=== PATIENT | female | born 1990 | race Caucasian/White ===

== ENCOUNTER 2024-10-16 14:01 | Observation (INO) ==
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
--- NOTE | 2024-10-16 15:07 | XRAY Report ---
PROCEDURE: XR Chest 1V INDICATIONS: chest pain TECHNIQUE: One view of the chest was acquired. COMPARISON: None. FINDINGS: Surgical changes and devices: None. Lungs and pleura: On the supine study, no large pneumothorax or large pleural effusions can be seen. No focal infiltrates are detected. Mediastinum: Mediastinal contours appear normal. Heart size is normal. Bones and chest wall: No suspicious bony lesions. Overlying soft tissues appear unremarkable. IMPRESSION: No acute cardiopulmonary process. Reviewed by: Ricki Talavera MD on 10/16/2024 2:05 PM AKDT Approved by: Ricki Talavera MD on 10/16/2024 2:05 PM KEVIN Station ID: [id number]
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
[2024-10-16 15:12] VITALS: O2SAT 98
[2024-10-16] MEDS ORDERED: ACETAMINOPHEN 325 MG TABLET PO PRN (15:30)
[2024-10-16] MEDS ORDERED: LACTATED RINGERS 1,000 ML IV SCH (15:30)
[2024-10-16] MEDS: LACTATED RINGERS 1,000 ML IV ONE (15:37)
[2024-10-16 16:13] LABS: HCT - HEMATOCRIT 36.4 % (37.0-47.0); HGB - HEMOGLOBIN 12.2 g/dL (12.0-16.0); MEAN PLATELET VOLUME 10.5 fL (7.9-10.8); NRBC ABSOLUTE COUNT (AUTO) 0.00 x10^3/uL; NUCLEATED RED BLOOD CELLS AUTO 0.0 /100WBC; PLT - PLATELET COUNT 305 10^3/uL (130-450); RED CELL DISTRIBUTION WIDTH 12.9 % (12.0-15.0)
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
[2024-10-16 16:29] LABS: INR 1.0 (0.8-1.2); PT - PROTHROMBIN TIME 10.9 secs (9.9-12.6)
[2024-10-16 16:30] LABS: ALT ALANINE AMINOTRANSFERASE 13.0 IU/L (10-60); AST ASPARTATE AMINOTRANSFERASE 18.0 IU/L (10-42); BUN - BLOOD UREA NITROGEN 8.0 mg/dL (6-20); CARBON DIOXIDE - CO2 23.0 mmol/L (21-32); CREATININE 0.5 mg/dL (0.6-1.3); GFR - MDRD 140.0 (>89)
[2024-10-16 18:13] LABS: GLUCOSE, URINE (UA) NEGATIVE (NEGATIVE); KETONES,URINE (UA) 15 mg/dL (NEGATIVE); OCCULT BLOOD,URINE NEGATIVE (NEGATIVE)
[2024-10-16 18:26] LABS: SQUAMOUS EPITHELIAL CELL,UR MANY Squamous (<= Few)
[2024-10-17 05:20] LABS: HCT - HEMATOCRIT 31.8 % (37.0-47.0); HGB - HEMOGLOBIN 10.8 g/dL (12.0-16.0); MEAN PLATELET VOLUME 9.7 fL (7.9-10.8); NRBC ABSOLUTE COUNT (AUTO) 0.00 x10^3/uL; NUCLEATED RED BLOOD CELLS AUTO 0.0 /100WBC; PLT - PLATELET COUNT 271 10^3/uL (130-450); RED CELL DISTRIBUTION WIDTH 12.8 % (12.0-15.0)
[2024-10-17 05:35] LABS: INR 1.0 (0.8-1.2); PT - PROTHROMBIN TIME 11.0 secs (9.9-12.6)
[2024-10-17 07:59] VITALS: TEMP 98.1
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
--- NOTE | 2024-10-17 12:36 | PHARMACY PROGRESS NOTE ---
Best Possible Medication History Admit Date and Time: 10/16/24 [id number] Home Medications Medication Instructions Recorded Confirmed Type aspirin 81 mg tablet,delayed 81 mg PO DAILY 10/17/24 0 10/17/24 History release (Adult Low Dose Aspirin) vit no.95-ferrous 1 tab PO DAILY 10/17/2409/03 History fumarate 28 mg-folic acid 800 mcg tablet ( Multivitamins) Processed by: Pharmacy (Medication reconciliation completed by [employer]) Medications reviewed in ED?: No Medication History completed: Yes Patient Interview: Completed Secondary Source(s): Insurance records [facility] Statement: As the person ultimately responsible for medication therapy, providers are able to order a medication from an existing home medication list in [facility] via the "Reconcile Routine" prior to Confirmation of that medication by service support representative. Such practice is discouraged except when the physician, in their clinical grace gment, deems that a medical need exists for a medication without regard to previous use.
[2024-10-17 14:22] VITALS: BP 129/76
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
== END 2024-10-17 14:00 | disposition home or self-care (01) ==
LOC: FBP 14:01 → ED 14:01 → FBP 15:03
PROVIDERS: ADMIT Obstetrics & Gynecology; ATTEND Obstetrics & Gynecology
DX: Z3A.29 29 weeks gestation of pregnancy; S30.1XXA Contusion of abdominal wall, initial encounter; O36.8130 Decreased fetal movements, third trimester, not applicable or unspecified; O99.343 Other mental disorders complicating pregnancy, third trimester; S20.212A Contusion of left front wall of thorax, initial encounter; V43.52XA Car driver injured in collision with other type car in traffic accident, initial encounter; Y92.410 Unspecified street and highway as the place of occurrence of the external cause; F41.9 Anxiety disorder, unspecified; O9A.213 Injury, poisoning and certain other consequences of external causes complicating pregnancy, third trimester

== ENCOUNTER 2024-12-23 11:46 | Inpatient (IN) ==
[2024-12-23] MEDS ORDERED: SODIUM CHLORIDE FLUSH 0.9% 10 ML SYRINGE IVP PRN ×2 (11:57→13:09)
[2024-12-23] MEDS ORDERED: RHO(D) IMMUNE GLOBULIN 300 MCG SYRINGE IM PRN (11:57)
[2024-12-23] MEDS ORDERED: MINERAL OIL LIGHT 10 ML TOP SCH (12:00)
[2024-12-23 13:01] LABS: HCT - HEMATOCRIT 41.4 % (37.0-47.0); HGB - HEMOGLOBIN 14.5 g/dL (12.0-16.0); MEAN PLATELET VOLUME 11.0 fL (7.9-10.8); NRBC ABSOLUTE COUNT (AUTO) 0.00 x10^3/uL; NUCLEATED RED BLOOD CELLS AUTO 0.0 /100WBC; PLT - PLATELET COUNT 324 10^3/uL (130-450); RED CELL DISTRIBUTION WIDTH 13.3 % (12.0-15.0)
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
[2024-12-23] MEDS ORDERED: CALCIUM CARBONATE CHEW 500 MG TABLET PO PRN (13:09)
[2024-12-23] MEDS ORDERED: OXYTOCIN 10 UNIT/ML VIAL IM PRN (13:09)
[2024-12-23] MEDS ORDERED: TERBUTALINE 1 MG/ML VIAL SUBQ PRN (13:09)
[2024-12-23] MEDS ORDERED: DOCUSATE SODIUM 100 MG CAPSULE PO PRN (13:09)
[2024-12-23] MEDS ORDERED: hydrALAZINE INJ 20 MG/ML VIAL IVP PRN ×3 (13:09→17:21)
[2024-12-23] MEDS ORDERED: METOCLOPRAMIDE 10 MG TABLET PO PRN (13:09)
[2024-12-23] MEDS ORDERED: ONDANSETRON ODT 4 MG TABLET PO PRN (13:09)
[2024-12-23] MEDS ORDERED: METHYLERGONOVINE 0.2 MG/ML VIAL IM PRN (13:09)
[2024-12-23] MEDS ORDERED: OXYTOCIN/SODIUM CHLORIDE 500 ML IV PRN ×2 (13:09→17:21)
[2024-12-23] MEDS ORDERED: LABETALOL 20 MG/4 ML SYRINGE IVP PRN ×5 (13:09→17:21)
[2024-12-23] MEDS ORDERED: TRANEXAMIC ACID IN NACL 1,000 MG/100 ML BAG IV PRN ×2 (13:09→17:21)
[2024-12-23] MEDS ORDERED: CARBOPROST TROMETHAMINE 250 MCG/ML VIAL IM PRN ×2 (13:09→17:21)
[2024-12-23] MEDS ORDERED: ACETAMINOPHEN 500 MG TABLET PO PRN ×2 (13:09)
[2024-12-23] MEDS ORDERED: fentaNYL 100 MCG/2 ML VIAL IVP PRN ×2 (13:09→16:37)
[2024-12-23] MEDS ORDERED: LACTATED RINGERS 1,000 ML IV PRN (13:09)
[2024-12-23 13:15] LABS: ALT ALANINE AMINOTRANSFERASE 7.0 IU/L (10-60); AST ASPARTATE AMINOTRANSFERASE 15.0 IU/L (10-42); BUN - BLOOD UREA NITROGEN 9.0 mg/dL (6-20); CARBON DIOXIDE - CO2 23.0 mmol/L (21-32); CREATININE 0.5 mg/dL (0.6-1.3); GFR - MDRD 140.0 (>89)
[2024-12-23] MEDS ORDERED: MAGNESIUM SULFATE IN WATER 20 GM/500 ML IV.SOLN IV ONE (13:19)
[2024-12-23] MEDS ORDERED: LABETALOL 20 MG/4 ML SYRINGE IVP ONE (13:19)
[2024-12-23] MEDS ORDERED: MAGNESIUM SULFATE 4 GRAM 4 GM/50 ML BAG IV ONE (13:19)
[2024-12-23] MEDS: LABETALOL 20 MG/4 ML SYRINGE IVP PRN (13:22)
[2024-12-23] MEDS ORDERED: CALCIUM GLUC 1,000MG/50ML-NACL 1,000 MG/50 ML BAG IV PRN (13:32)
[2024-12-23] MEDS: MAGNESIUM SULFATE 4 GRAM 4 GM/50 ML BAG IV ONE (13:35)
[2024-12-23] MEDS: LACTATED RINGERS 1,000 ML IV SCH (13:42)
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
[2024-12-23] MEDS: MAGNESIUM SULFATE IN WATER 20 GM/500 ML IV.SOLN IV SCH (13:58)
[2024-12-23] MEDS ORDERED: SODIUM CHLORIDE FLUSH 0.9% 10 ML SYRINGE IVP SCH (14:00)
[2024-12-23] MEDS: TERBUTALINE 1 MG/ML VIAL SUBQ PRN (14:53)
[2024-12-23] MEDS ORDERED: ONDANSETRON 4 MG/2 ML VIAL ONE (15:03)
[2024-12-23] MEDS: ONDANSETRON 4 MG/2 ML VIAL IVP PRN (15:05)
[2024-12-23] MEDS ORDERED: LIDOCAINE 2%-EPI 1:100000 20 ML MDV ONE (15:15)
--- NOTE | 2024-12-23 15:31 | PROVIDER PROGRESS NOTE ---
Labor Progress Note Labor Progress Note Labor Progress Note/Additional Text: External Cephalic Version procedure: Preop dx: - Breech presentation - Preeclampsia with severe features Postop dx: - Same, persistent breech Procedure: External cephalic Version Technique: Combined spinal/epidural was administered, and pt given Terbutaline 0.25 mg SQ. US was at the bedside. Version started with forward roll attempt, which did not move the baby's head or position. Patient became nauseated and lightheaded. Rpt BP was low (80/60s) secondary to the spinal. Left tilt and ephedrine were administered. Version paused. FHT was noted to be in 80s to 90s then recovered, as BP returned to 120-130s/80s. Variability was moderate. Version resumed with backward roll, which was again unsuccessful (really no movement of the head at all). At that time version was terminated due to persistent breech. Patient tolerated procedure fairly well with no complications. Recommend proceeding to delivery. Preop counseling performed, and consent form reviewed and signed. Will assemble OR team to start once team/room ready (FHT currently cat 2 and not requiring emergent delivery).
[2024-12-23] MEDS ORDERED: CARBOPROST TROMETHAMINE 250 MCG/ML VIAL IM ONE (16:29)
[2024-12-23] MEDS ORDERED: fentaNYL 100 MCG/2 ML VIAL ONE (16:31)
[2024-12-23] MEDS ORDERED: MORPHINE 2 MG/ML CARPUJECT IVP PRN (16:37)
[2024-12-23] MEDS ORDERED: METOCLOPRAMIDE 10 MG/2 ML VIAL IVP PRN (16:37)
[2024-12-23] MEDS ORDERED: ONDANSETRON 4 MG/2 ML VIAL IVP PRN (16:37)
[2024-12-23] MEDS ORDERED: ATROPINE ABBOJECT 1 MG/10 ML SYRINGE IVP PRN (16:37)
[2024-12-23] MEDS ORDERED: NALOXONE 0.4 MG/ML VIAL IVP PRN ×2 (16:37→17:21)
[2024-12-23] MEDS ORDERED: HYDROmorphone 0.5 MG/0.5 ML SYRINGE IVP PRN (16:37)
[2024-12-23] MEDS ORDERED: ePHEDrine 50 MG/ML VIAL IVP PRN (16:37)
[2024-12-23] MEDS ORDERED: ROPIVACAINE 0.5% PF 20 ML VIAL ONE (16:44)
[2024-12-23] MEDS ORDERED: DEXAMETHASONE 4 MG/ML VIAL ONE (16:47)
[2024-12-23] MEDS ORDERED: LACTATED RINGERS 1,000 ML IV SCH (17:00)
--- NOTE | 2024-12-23 17:51 | ANESTHESIA POST OP EVALUATION ---
Anesthesia Post Eval Post Anesthesia Eval Vitals: Last Vital Signs Temp 36.1 C L 12/23/24 17:45 Pulse 108 H 12/23/24 17:45 Resp 18 12/23/24 17:45 BP 160/100 H 12/23/24 17:45 Pulse Ox 99 12/23/24 17:45 CV Function Including HR & BP: Stable Pain Control: Satisfactory Nausea & Vomiting: Negative Mental Status: Baseline Respiratory Status: Airway Patent Hydration Status: Satisfactory Anesthesia Complications: None
[2024-12-23] MEDS: NALBUPHINE 10 MG/ML AMP IVP ONE (17:56)
[2024-12-23] MEDS: CITRIC ACID/SODIUM CITRATE 15 ML UDC PO ONE (18:03)
[2024-12-23] MEDS: ceFAZolin (2G) 2 GM in SODIUM CHLORIDE 0.9% MINIBAG 100 ML IV ONE (18:04)
[2024-12-23] MEDS: DIPHENOX/ATROPINE 2.5/0.025 MG TABLET PO PRN (18:14)
[2024-12-23] MEDS: KETOROLAC 30 MG/ML VIAL IVP SCH (18:37)
[2024-12-23] MEDS: ACETAMINOPHEN 500 MG TABLET PO SCH (18:38)
--- NOTE | 2024-12-23 19:11 | OPERATIVE REPORT ---
Operative Report General Admit Date: 12/23/24 Procedure Data: Operation Date: 12/23/24 15:30 Proposed Procedures p Section(Not Applicable) - Amalia Keen MD Actual Procedures p Section(Not Applicable) - Amalia Keen MD Pre-Op Diagnosis: breech presentation Anesthesia Type Spinal Case Staff Anesthesia Provider: Bienvenido Block Case Times Into Recovery: 12/23/24 17:22 Procedure Start: 12/23/24 16:17 Procedure End: 12/23/24 17:12 Time out: 12/23/24 16:16 Procedure Note Intake, IV Amount (ml): 900 Estimated Blood Loss (ml): 720 Output, Urine Amount (ml): 200 Complications: None Other Other Information/Narrative: Preoperative Diagnosis: - Deniz breech presentation, persistent s/p attempted external cephalic version - Pre-eclampsia with severe features - Elderly primigravida, third trimester - at 37 weeks gestation Postoperative Diagnosis: - Same as above now s/p primary low transverse Procedure: Primary low-transverse with two-layer hysterotomy closure Surgeon: Dr. Amalia Keen Petroleum Geologist: Ananya Vivas CNM Anesthesia: - Combined spinal/epidural - TAP Block Qualitative Blood Loss: 720 ml IV Fluids: 900 ml Urine Output: 200 ml Medications: - Pitocin bolus - Tranexamic acid 1000 mg IV - Hemabate 250 mcg IM - Misoprostol 600 mcg sublingual - Magnesium sulfate continued during surgery Specimen: - Cord blood Indications: Patient is a 34 yo at 37+5 wks who presented to [facility] today for scheduled external cephalic version. Her baby was known to be in breech presentation, and this was confirmed today via ultrasound. She had also had a previously mildly elevated blood pressure and elevated protein-creatinine ratio but not yet meeting blood pressure criteria for pre-eclampsia. While awaiting start of the version, blood pressures were initially moderately elevated, then she developed severe-range blood pressures. Labetalol IV was started as well as mag sulfate for seizure prophylaxis. Combined spinal/epidural was placed for the version, and she was given terbutaline for uterine relaxation. The version was unsuccessful, and it was recommended the patient undergo primary at this time. Expectations and risks were discussed, and surgical consent form reviewed and signed. Findings: - No notable lower abdominal adhesions (history of prior abdominal surgeries) - Viable female delivered from Deniz breech presentation. Nuchal cord x 2 were noted. APGARS were 7 at one minute and 9 at five minutes. weight was 3175 gm. - Placenta was expressed, and the uterine cavity swept. The placenta appeared bilobed and intact. - Tubes, ovaries, and uterus were overall normal in appearance - Uterine tone was fair after start of Pitocin. TXA then Hemabate were administered. When tone remained fair, sublingual misoprostol was administered. Tone improved thereafter. Operative Technique: The patient was taken to the operative room where epidural was already in place and had been bloused to surgical level by Anesthesia. Osman catheter had already been inserted. The abdomen was prepped and draped in sterile fashion, and surgical Time Out performed. After confirming adequate anesthesia with an Allis clamp, a Pfannenstiel incision was created sharply 3 cm above the suprapubic bone. The subcutaneous tissue was incised with cautery due to prominent small vessels. The fascia was sharply incised at the midline, then extended laterally bluntly. The superior rectus fascia was grasped with Wang clamps at the midline and tented up while the rectus muscle was bluntly and sharply dissected off posteriorly. The same was then performed at the inferior rectus fascia. The muscles were bluntly . A clear window of the anterior peritoneum was grasped and incised sharply. This incision was then extended with gentle stretch. Bladder blade was placed. The lower uterine segment was incised in low transverse fashion then bluntly enlarged in a cranial-caudal direction. Clear amniotic fluid was noted at the time of membrane rupture. The infants breech was grasped and delivered through the incision. Once that abdomen was delivered, the baby was rotated to sweep the arms across the chest. Two nuchal cords were noted, then the head delivered easily through the cords while applying gentle pressure on the fundus. The baby had initial poor tone and respiratory effort. She was dried and stimulated. Umbilical cord milking was performed, then the cord clamped and cut to deliver the to the warmer quickly. There, she responded well to resuscitative measures. Cord blood was obtained, then the placenta delivered by expression and uterine massage. The uterus was exteriorized onto the maternal abdomen. Uterine tone w as addressed with medications as noted above. The hysterotomy was closed with a running, locked suture of 0 Chromic followed by an imbricating suture of 0 Chromic. A figure of eight suture was placed at the midline to achieve hemostasis. The posterior cul de sac was irrigated and suctioned, then the uterus returned to the abdomen. The peritoneal gutters were wiped, and the uterine incision re-examined and noted to be hemostatic. The peritoneum and muscles were reapproximated with running non-locked suture of 2-0 Vicryl. The rectus muscle was then examined and hemostatic after application of cautery where needed. The rectus fascia was closed with a running non-locked suture of 0 Vicryl. The subcutaneous tissue was irrigated then reapproximated with interrupted 2-0 Vicryl. The skin was then closed in a subcuticular fashion using 4-0 Monocryl. Mastisol, steri- strips, and dressing were then applied. Sponge, lap, and needle count were completed and correct. The patient tolerated the procedure well, overall. TAP block was performed by Anesthesia, and she was subsequently moved to the recovery room in stable condition. Petroleum Geologist Attestation: In this [facility], a surgical scrub tech (named above) was needed to perform surgical supervisor duties. The psychology assistant was critical with retraction of tissue, cutting suture, gently stretching the peritoneum and abdominal wall, applying pressure on the upper abdomen and uterus to deliver the baby, performing initial resuscitative steps for the baby on the maternal abdomen, and assisting with closure of the surgical layers and skin.
[2024-12-23] MEDS: DOCUSATE SODIUM 100 MG CAPSULE PO SCH (20:20)
[2024-12-23] MEDS: NIFEdipine ER 30 MG TABLET PO SCH (20:20)
[2024-12-23] MEDS: oxyCODONE 5 MG TABLET PO PRN (22:05)
[2024-12-24 07:11] LABS: HCT - HEMATOCRIT 32.4 % (37.0-47.0); HGB - HEMOGLOBIN 11.3 g/dL (12.0-16.0); MEAN PLATELET VOLUME 10.3 fL (7.9-10.8); PLT - PLATELET COUNT 260.0 10^3/uL (130-450); RED CELL DISTRIBUTION WIDTH 13.4 % (12.0-15.0)
[2024-12-24 07:27] LABS: ALT ALANINE AMINOTRANSFERASE 19.0 IU/L (10-60); AST ASPARTATE AMINOTRANSFERASE 55.0 IU/L (10-42); BUN - BLOOD UREA NITROGEN 10.0 mg/dL (6-20); CARBON DIOXIDE - CO2 22.0 mmol/L (21-32); CREATININE 0.6 mg/dL (0.6-1.3); GFR - MDRD 113.0 (>89)
[2024-12-24] MEDS ORDERED: FAMOTIDINE 20 MG/2 ML VIAL IVP SCH (09:00)
[2024-12-24] MEDS: SIMETHICONE CHEW 80 MG TABLET PO PRN (09:48)
--- NOTE | 2024-12-24 12:59 | PROVIDER PROGRESS NOTE ---
Subjective Prog Note Date Prog Note Date: 12/24/24 Prog Note Time: 12:52 Subjective Subjective: Reports that she is overall feeling well this morning, just very tired. Has not been able to sleep much. Trying to breast feed. Reports pain is well controlled. Has been up out of bed and ambulated in the room. She is voiding with moore catheter in place. Lochia is light. She is tolerating regular diet without N/V. Denies SEAMAN, vision changes, CP, SOB. Current Medications Current Medications Current Medications: Current Medications Generic Name Dose Route Start Last Admin Trade Name Freq PRN Reason Stop Dose Admin Acetaminophen 1,000 mg 12/23/24 18:00 12/24/24 02:34 Acetaminophen 500 Mg Tablet PO 1,000 mg Q8H KENROY Administration Atropine Sulfate 0.5 mg 12/23/24 16:37 Atropine Abboject 1 Mg/10 Ml Syringe IVP 12/24/24 16:37 Q5M PRN Bradycardia Calcium Carbonate/Glycine 1,000 mg 12/23/24 13:09 Calcium Carbonate Chew 500 Mg Tablet PO Q6HR PRN Heartburn Carboprost Tromethamine 250 mcg 12/23/24 17:21 Carboprost Tromethamine 250 Mcg/Ml Vial IM .ONCE PRN Hemorrhage Diphenhydramine HCl 25 mg 12/23/24 13:09 Diphenhydramine Inj 50 Mg/Ml Vial IVP Q6H PRN Allergy Symptoms Diphenoxylate HCl/Atropine 1 tab 12/23/24 17:24 12/23/24 18:14 Diphenox/Atropine 2.5/0.025 Mg Tablet PO 1 tab QID PRN Administration Diarrhea Docusate Sodium 200 mg 12/23/24 21:00 12/24/24 09:38 Docusate Sodium 100 Mg Capsule PO 200 mg BID KENROY Administration Famotidine 20 mg 12/24/24 09:00 Famotidine 20 Mg/2 Ml Vial IVP DAILY KENROY Fentanyl 50 mcg 12/23/24 13:09 Fentanyl 100 Mcg/2 Ml Vial IVP Q1H PRN Severe Pain (score 7-10) Hydralazine HCl 5 - 20 mg 12/23/24 17:21 Hydralazine Inj 20 Mg/Ml Vial IVP Q20M PRN SBP> or= 160 OR DBP> or= 110 Protocol Hydromorphone HCl 0.2 - 0.6 mg 12/23/24 16:37 Hydromorphone 0.5 Mg/0.5 Ml Syringe IVP 12/24/24 16:37 Q5M PRN PAIN (First Choice) Lactated Ringer's 500 mls @ 999 mls/hr 12/23/24 13:09 Lr IV PRN PRN PER PHYSICIAN ORDER Lactated Ringer's 1,000 mls @ 75 mls/hr 12/23/24 14:00 12/24/24 05:33 Lr IV 75 mls/hr .[id number] KENROY Administration Magnesium Sulfate 20 gm in 500 mls @ 50 mls/hr 12/23/24 14:00 12/24/24 09:48 Magnesium Sulf 20 G/500 Ml Bag IV 50 mls/hr .Q10H KENROY Administration CALCIUM GLUC 1,000MG/50ML-NACL 1,000 mg in 50 mls @ 200 mls/hr 12/23/24 13:32 Calcium Gluc 1,000mg/50ml-Nacl IV PRN PRN mag toxicity Oxytocin/Sodium Chloride 500 mls @ 999 mls/hr 12/23/24 17:21 Pitocin/Sodium Chloride IV PRN PRN POST- HEMORR PREVENTION Protocol 999 MILLIUNIT/MIN Tranexamic Acid 1,000 mg in 100 mls @ 500 mls/hr 12/23/24 17:21 Tranexamic 1,000 Mg/100ml-Nacl IV PRN PRN Uterine atony/ Uterine Bleed Ibuprofen 600 mg 12/24/24 13:00 Ibuprofen 600 Mg Tablet PO Q6H KENROY Labetalol HCl 20 mg 12/23/24 13:09 Labetalol 20 Mg/4 Ml Syringe IVP .ONCE PRN SBP> or= 160 OR DBP> or= 110 Protocol Labetalol HCl 20 - 80 mg 12/23/24 13:09 12/23/24 13:22 Labetalol 20 Mg/4 Ml Syringe IVP 20 mg Q10M PRN Administration SBP> or= 160 OR DBP> or= 110 Protocol Labetalol HCl 20 - 40 mg 12/23/24 17:21 Labetalol 20 Mg/4 Ml Syringe IVP Q10M PRN SBP> or= 160 OR DBP> or= 110 Protocol Lidocaine HCl 20 ml 12/23/24 13:09 Lidocaine 1% 20 Ml Mdv ID 11/16/25 13:10 .ONCE PRN PERINEAL REPAIR Methylergonovine Maleate 0.2 mg 12/23/24 13:09 Methylergonovine 0.2 Mg/Ml Vial IM .ONCE PRN Hemorrhage Metoclopramide HCl 5 mg 12/23/24 13:09 Metoclopramide 10 Mg Tablet PO Q6HR PRN Nausea / Vomiting Metoclopramide HCl 10 mg 12/23/24 16:37 Metoclopramide 10 Mg/2 Ml Vial IVP Q6HR PRN N/V not relieved by Zofran Mineral Oil 10 ml 12/23/24 12:00 Mineral Oil Light 10 Ml TOP .ONCE KENROY Misoprostol 600 mcg 12/23/24 13:09 Misoprostol 200 Mcg Tablet BC .ONCE PRN Hemorrhage Misoprostol 800 mcg 12/23/24 13:09 Misoprostol 200 Mcg Tablet IA .ONCE PRN Hemorrhage Morphine Sulfate 2 - 4 mg 12/23/24 16:37 Morphine 2 Mg/Ml Carpuject IVP 12/24/24 16:37 Q5M PRN PAIN (3rd Choice) Naloxone HCl 0.1 mg 12/23/24 16:37 Naloxone 0.4 Mg/Ml Vial IVP 12/24/24 16:37 Q2M PRN RESP RATE <8 Naloxone HCl 0.4 mg 12/23/24 17:21 Naloxone 0.4 Mg/Ml Vial IVP .ONCE PRN Opioid overdose Nifedipine 10 - 20 mg 12/23/24 17:21 Nifedipine 10 Mg Capsule PO Q20M PRN SBP> or= 160 OR DBP> or= 110 Protocol Nifedipine 30 mg 12/23/24 21:00 12/24/24 09:38 Nifedipine Er 30 Mg Tablet PO 30 mg BID KENROY Administration Ondansetron HCl 4 mg 12/23/24 13:09 Ondansetron Odt 4 Mg Tablet PO Q4HR PRN Nausea / Vomiting Ondansetron HCl 4 mg 12/23/24 15:01 12/23/24 15:05 Ondansetron 4 Mg/2 Ml Vial IVP 4 mg Q4HR PRN Administration Nausea / Vomiting Oxycodone HCl 5 mg 12/23/24 17:21 12/24/24 09:39 Oxycodone 5 Mg Tablet PO 5 mg Q4HR PRN Administration Severe Pain 6 -10 Oxytocin 10 unit 12/23/24 13:09 Oxytocin 10 Unit/Ml Vial IM .ONCE PRN Step One if no IV access. Rho Immune Globulin 300 mcg 12/23/24 11:57 Rho(D) Immune Globulin 300 Mcg Syringe IM .ONCE PRN For Rh incompatibilty. Simethicone 80 mg 12/23/24 17:24 12/24/24 09:48 Simethicone Chew 80 Mg Tablet PO 80 mg 0900,1300,1800,2100 PRN Administration gas pain Sodium Chloride 10 ml 12/23/24 13:09 Sodium Chloride Flush 0.9% 10 Ml Syringe IVP PRN PRN NEEDED PER PROVIDER ORDERS Objective Vital Signs/Intake & Output Vital Signs: Vital Signs x48h Temp Pulse Resp BP Pulse Ox 12/24/24 11:17 98.2 F 90 18 128/55 L 96 12/24/24 09:00 98.2 F 87 16 108/74 95 12/24/24 07:36 98.6 F 83 16 120/76 97 12/24/24 05:00 97.9 F 90 16 126/74 96 Intake & Output: Intake & Output 12/21/24 12/22/24 12/23/24 12/24/24 23:59 23:59 23:59 23:59 Intake Total 1388 / 1388 2500 / 2500 Output Total 1350 / 1350 1605 / 1605 Balance 38 / 38 895 / 895 Weight (kg) 149 lb Objective Comments/Other: Gen: NAD CV: RRR Resp: non labored respirations, no crackles Abd: soft, appropriately TTP, non-distended, no rebound/guarding. Bandage in place is clean and dry. Ext: SCDs in place, no LE edema Lab Results 12/24/24 06:30 12/24/24 06:30 Other Labs: Lab Results x24hrs 12/24/24 12/23/24 Range/Units 06:30 12:25 WBC 15.8 H 10.2 (4.8-10.8) x10^3/uL RBC 3.53 L 4.47 (4.20-5.40) 10^6/uL Hgb 11.3 L 14.5 (12.0-16.0) g/dL Hct 32.4 L 41.4 (37.0-47.0) % MCV 91.8 92.6 (81.0-99.0) fL MCH 32.0 H 32.4 H (27.0-31.0) pg MCHC 34.9 35.0 (32.0-36.0) g/dL RDW 13.4 13.3 (12.0-15.0) % Plt Count 260 324 (130-450) 10^3/uL MPV 10.3 11.0 H (7.9-10.8) fL Neut # (Auto) 7.1 H (1.5-6.6) 10^3/uL Lymph # (Auto) 2.3 (1.5-3.5) 10^3/uL Bleckley # (Auto) 0.5 (0.0-1.0) 10^3/uL Eos # (Auto) 0.1 (0.0-0.7) 10^3/uL Baso # (Auto) 0.0 (0.0-0.1) 10^3/uL Absolute Nucleated RBC 0.00 x10^3/uL Nucleated RBC % 0.0 /100WBC Sodium 130 L 134 L (135-145) mmol/L Potassium 4.1 4.0 (3.5-4.5) mmol/L Chloride 99 L 103 (101-111) mmol/L Carbon Dioxide 22 23 (21-32) mmol/L Anion Gap 9.0 8.0 (6-13) BUN 10 9 (6-20) mg/dL Creatinine 0.6 0.5 L (0.6-1.3) mg/dL Estimated GFR (MDRD) 113 140 (>89) Glucose 109 H 83 (74-104) mg/dL Calcium 6.7 L 9.0 (8.5-10.3) mg/dL Magnesium 6.9 H* (1.7-2.3) mg/dL Total Bilirubin 0.5 0.2 (0.2-1.0) mg/dL AST 55 H 15 (10-42) IU/L ALT 19 7 L (10-60) IU/L Alkaline Phosphatase 202 H 230 H (42-121) IU/L Total Protein 5.1 L 6.2 L (6.4-8.9) g/dL Albumin 2.6 L 3.1 L (3.2-5.5) g/dL Globulin 2.5 3.1 (2.1-4.2) g/dL Albumin/Globulin Ratio 1.0 1.0 (1.0-2.2) Blood Type A POSITIVE Antibody Screen NEGATIVE Assessment/Plan Problem List (1) care following delivery: Impression: Overall doing well, continue routine postoperative care. Encouraged ambulation later today once moore is removed, and can take bandage off in the shower (or can remove tomorrow). Our community health worker, Panfilo, is helping with discharge planning and her assistance is greatly appreciated. (2) Preeclampsia: Impression: - On repeat labs this morning, AST slightly elevated (55). Will repeat tomorrow morning. - Magnesium to d/c at approximate 1630 this afternoon, may then remove moore. Has had excellenet UOP. Discussed with RN decreasing IV fluids to total of 75cc/hr and then may d/c fluids completely once magnesium is off. - BPs currently normal range. Continue procardia 30XL BID. Discussed close monitoring of BPs for 24-48hrs after discontinuation of magnesium toensure that we have her own good regimen to control her BPs. Panfilo is helping to arrange for Antonella to have a blood pressure cuff for home BP monitoring at discharge. Qualifiers: Trimester: third trimester Qualified Code(s): O14.93 - Unspecified pre- eclampsia, third trimester
[2024-12-24] MEDS: IBUPROFEN 600 MG TABLET PO SCH (13:44)
[2024-12-25 08:14] LABS: ALT ALANINE AMINOTRANSFERASE 15.0 IU/L (10-60); AST ASPARTATE AMINOTRANSFERASE 27.0 IU/L (10-42); BUN - BLOOD UREA NITROGEN 11.0 mg/dL (6-20); CARBON DIOXIDE - CO2 26.0 mmol/L (21-32); CREATININE 0.6 mg/dL (0.6-1.3); GFR - MDRD 113.0 (>89)
[2024-12-25 08:26] LABS: HCT - HEMATOCRIT 29.7 % (37.0-47.0); HGB - HEMOGLOBIN 10.0 g/dL (12.0-16.0); MEAN PLATELET VOLUME 10.2 fL (7.9-10.8); PLT - PLATELET COUNT 250.0 10^3/uL (130-450); RED CELL DISTRIBUTION WIDTH 14.1 % (12.0-15.0)
--- NOTE | 2024-12-25 11:07 | PROVIDER PROGRESS NOTE ---
Subjective Prog Note Date Prog Note Date: 12/25/24 Prog Note Time: 10:58 Subjective Subjective: Feeling very tired, it has been hard to sleep in the hospital. Incision is sore, but overall feels that her pain is well controlled with current regimen. She is ambulating and urinating without difficulty. Passing flatus. She is both and supplementing with formula, planning to try the breast pump today. OK with plan to stay until tomorrow to allow for further BP monitoring and support. They will be staying with his mom in [place] until they can move in to a new place later this month. Ayla, our community health worker, has been able to arrange a taxi service to go home and get to appointments as well as a blood pressure cuff for home BP monitoring. Current Medications Current Medications Current Medications: Current Medications Generic Name Dose Route Start Last Admin Trade Name Freq PRN Reason Stop Dose Admin Acetaminophen 1,000 mg 12/23/24 18:00 12/25/24 06:10 Acetaminophen 500 Mg Tablet PO 1,000 mg Q8H KENROY Administration Calcium Carbonate/Glycine 1,000 mg 12/23/24 13:09 Calcium Carbonate Chew 500 Mg Tablet PO Q6HR PRN Heartburn Carboprost Tromethamine 250 mcg 12/23/24 17:21 Carboprost Tromethamine 250 Mcg/Ml Vial IM .ONCE PRN Hemorrhage Diphenhydramine HCl 25 mg 12/23/24 13:09 Diphenhydramine Inj 50 Mg/Ml Vial IVP Q6H PRN Allergy Symptoms Diphenoxylate HCl/Atropine 1 tab 12/23/24 17:24 12/23/24 18:14 Diphenox/Atropine 2.5/0.025 Mg Tablet PO 1 tab QID PRN Administration Diarrhea Docusate Sodium 200 mg 12/23/24 21:00 12/25/24 10:00 Docusate Sodium 100 Mg Capsule PO 200 mg BID KENROY Administration Famotidine 20 mg 12/24/24 09:00 Famotidine 20 Mg/2 Ml Vial IVP DAILY KENROY Fentanyl 50 mcg 12/23/24 13:09 Fentanyl 100 Mcg/2 Ml Vial IVP Q1H PRN Severe Pain (score 7-10) Hydralazine HCl 5 - 20 mg 12/23/24 17:21 Hydralazine Inj 20 Mg/Ml Vial IVP Q20M PRN SBP> or= 160 OR DBP> or= 110 Protocol Hydroxyzine Pamoate 25 mg 12/24/24 13:07 Hydroxyzine Pamoate 25 Mg Capsule PO Q6H PRN Insomnia, anxiety Lactated Ringer's 500 mls @ 999 mls/hr 12/23/24 13:09 Lr IV PRN PRN PER PHYSICIAN ORDER Lactated Ringer's 1,000 mls @ 75 mls/hr 12/23/24 14:00 12/24/24 16:30 Lr IV 0 mls/hr .[id number] KENROY Infusion Magnesium Sulfate 20 gm in 500 mls @ 50 mls/hr 12/23/24 14:00 12/24/24 16:36 Magnesium Sulf 20 G/500 Ml Bag IV 0 mls/hr .Q10H KENROY Infusion CALCIUM GLUC 1,000MG/50ML-NACL 1,000 mg in 50 mls @ 200 mls/hr 12/23/24 13:32 Calcium Gluc 1,000mg/50ml-Nacl IV PRN PRN mag toxicity Oxytocin/Sodium Chloride 500 mls @ 999 mls/hr 12/23/24 17:21 Pitocin/Sodium Chloride IV PRN PRN POST- HEMORR PREVENTION Protocol 999 MILLIUNIT/MIN Tranexamic Acid 1,000 mg in 100 mls @ 500 mls/hr 12/23/24 17:21 Tranexamic 1,000 Mg/100ml-Nacl IV PRN PRN Uterine atony/ Uterine Bleed Ibuprofen 600 mg 12/24/24 13:00 12/25/24 10:01 Ibuprofen 600 Mg Tablet PO 600 mg Q6H KENROY Administration Labetalol HCl 20 mg 12/23/24 13:09 Labetalol 20 Mg/4 Ml Syringe IVP .ONCE PRN SBP> or= 160 OR DBP> or= 110 Protocol Labetalol HCl 20 - 80 mg 12/23/24 13:09 12/23/24 13:22 Labetalol 20 Mg/4 Ml Syringe IVP 20 mg Q10M PRN Administration SBP> or= 160 OR DBP> or= 110 Protocol Labetalol HCl 20 - 40 mg 12/23/24 17:21 Labetalol 20 Mg/4 Ml Syringe IVP Q10M PRN SBP> or= 160 OR DBP> or= 110 Protocol Lidocaine HCl 20 ml 12/23/24 13:09 Lidocaine 1% 20 Ml Mdv ID 12/26/24 13:10 .ONCE PRN PERINEAL REPAIR Methylergonovine Maleate 0.2 mg 12/23/24 13:09 Methylergonovine 0.2 Mg/Ml Vial IM .ONCE PRN Hemorrhage Metoclopramide HCl 5 mg 12/23/24 13:09 Metoclopramide 10 Mg Tablet PO Q6HR PRN Nausea / Vomiting Metoclopramide HCl 10 mg 12/23/24 16:37 Metoclopramide 10 Mg/2 Ml Vial IVP Q6HR PRN N/V not relieved by Zofran Mineral Oil 10 ml 12/23/24 12:00 Mineral Oil Light 10 Ml TOP .ONCE KENROY Misoprostol 600 mcg 12/23/24 13:09 Misoprostol 200 Mcg Tablet BC .ONCE PRN Hemorrhage Misoprostol 800 mcg 12/23/24 13:09 Misoprostol 200 Mcg Tablet ID .ONCE PRN Hemorrhage Naloxone HCl 0.4 mg 12/23/24 17:21 Naloxone 0.4 Mg/Ml Vial IVP .ONCE PRN Opioid overdose Nifedipine 10 - 20 mg 12/23/24 17:21 Nifedipine 10 Mg Capsule PO Q20M PRN SBP> or= 160 OR DBP> or= 110 Protocol Nifedipine 30 mg 12/23/24 21:00 12/25/24 10:00 Nifedipine Er 30 Mg Tablet PO 30 mg BID KENROY Administration Ondansetron HCl 4 mg 12/23/24 13:09 Ondansetron Odt 4 Mg Tablet PO Q4HR PRN Nausea / Vomiting Ondansetron HCl 4 mg 12/23/24 15:01 12/23/24 15:05 Ondansetron 4 Mg/2 Ml Vial IVP 4 mg Q4HR PRN Administration Nausea / Vomiting Oxycodone HCl 5 mg 12/23/24 17:21 12/25/24 10:01 Oxycodone 5 Mg Tablet PO 5 mg Q4HR PRN Administration Severe Pain 6 -10 Oxytocin 10 unit 12/23/24 13:09 Oxytocin 10 Unit/Ml Vial IM .ONCE PRN Step One if no IV access. Rho Immune Globulin 300 mcg 12/23/24 11:57 Rho(D) Immune Globulin 300 Mcg Syringe IM .ONCE PRN For Rh incompatibilty. Simethicone 80 mg 12/23/24 17:24 12/24/24 09:48 Simethicone Chew 80 Mg Tablet PO 80 mg 0900,1300,1800,2100 PRN Administration gas pain Sodium Chloride 10 ml 12/23/24 13:09 Sodium Chloride Flush 0.9% 10 Ml Syringe IVP PRN PRN NEEDED PER PROVIDER ORDERS Objective Vital Signs/Intake & Output Vital Signs: Vital Signs x48h Temp Pulse Resp BP Pulse Ox 12/25/24 09:00 98.8 F 85 16 125/79 96 12/25/24 06:20 98.1 F 95 16 119/81 97 12/25/24 04:06 98.1 F 78 16 128/69 97 Intake & Output: Intake & Output 12/22/24 12/23/24 12/24/24 12/25/24 23:59 23:59 23:59 23:59 Intake Total 1388 / 1388 4661 / 4661 300 / 300 Output Total 1350 / 1350 4545 / 4545 Balance 38 / 38 116 / 116 300 / 300 Weight (kg) 149 lb Objective Comments/Other: Gen: NAD Chest: non labored respirations Abd: soft, mildly distended, appropriately TTP, no rebound/guarding Ext: no LE edema, no evidence of VTE Lab Results 12/25/24 07:55 12/25/24 07:55 Other Labs: Lab Results x24hrs 12/25/24 Range/Units 07:55 WBC 9.2 (4.8-10.8) x10^3/uL RBC 3.17 L (4.20-5.40) 10^6/uL Hgb 10.0 L (12.0-16.0) g/dL Hct 29.7 L (37.0-47.0) % MCV 93.7 (81.0-99.0) fL MCH 31.5 H (27.0-31.0) pg MCHC 33.7 (32.0-36.0) g/dL RDW 14.1 (12.0-15.0) % Plt Count 250 (130-450) 10^3/uL MPV 10.2 (7.9-10.8) fL Sodium 137 (135-145) mmol/L Potassium 4.2 (3.5-4.5) mmol/L Chloride 104 (101-111) mmol/L Carbon Dioxide 26 (21-32) mmol/L Anion Gap 7.0 (6-13) BUN 11 (6-20) mg/dL Creatinine 0.6 (0.6-1.3) mg/dL Estimated GFR (MDRD) 113 (>89) Glucose 79 (74-104) mg/dL Calcium 7.7 L (8.5-10.3) mg/dL Total Bilirubin 0.2 (0.2-1.0) mg/dL AST 27 (10-42) IU/L ALT 15 (10-60) IU/L Alkaline Phosphatase 183 H (42-121) IU/L Total Protein 5.2 L (6.4-8.9) g/dL Albumin 2.6 L (3.2-5.5) g/dL Globulin 2.6 (2.1-4.2) g/dL Albumin/Globulin Ratio 1.0 (1.0-2.2) Assessment/Plan Problem List (1) care following delivery: Impression: Doing well, meeting postoperative milestones. Antonella plans to remove bandage later today when she takes a shower. Will stay for another day to ensure we have her on a good pain medicine regimen, for additional support, and to ensure that her antihypertensive regimen is adequate. (2) Preeclampsia: Impression: BPs well controlled on current regimen. Labs normal this AM. Asymptomatic. Will continue to monitor. Qualifiers: Trimester: third trimester Qualified Code(s): O14.93 - Unspecified pre- eclampsia, third trimester (3) Blood loss anemia: Impression: Plan for oral iron on discharge.
[2024-12-26 05:43] VITALS: TEMP 98.8
--- NOTE | 2024-12-26 11:34 | Discharge Summary ---
Discharge Summary Admit Date: 12/23/24 Discharge Date: 12/26/24 Discharging Provider: Tan Dennison MD [facility] History of Present Illness: Admission Diagnosis: - SIUP at 37w5d - Breech presentation - Preeclampsia without severe features - AMA Discharge Diagnosis: - Same, delivered - Unsuccessful ECV - s/p primary delivery - Preeclampsia with severe features Procedures: ECV attempt, primary LTCS Hospital Course: Antonella presented for ECV ni the setting of breech presentation, preeclampsia without severe features. ECV was unsuccessful and she underwent primary LTCS. Prior to ECV attempt, she had severe range blood pressures meeting and was diagnosed with preeclampsia with severe features and started on magnesium sulfafe. At delivery, found to have nuchal cord x 2. QBL 720cc and received multiple uterotonics and TXA for mild atony. , she received magnesium sulfate for 24hrs after delivery. Her ST did increase slightly to 55, but then downtrended back to normal. Her course was otherwise uncomplicated. Assistance was recieved from Ayla, community health worker, for discharge planning. Condition on Discharge: She feels well overall and ready to go home. Pain is well controlled with current medications. She does still report pain at her incision, but feels that pain medications are working sufficiently. The baby is doing well. Baby is feeding via breast feeding and formula supplementation. She is ambulating well, tolerating normal diet, urinating without difficulty. Flatus has been passed. Lochia is reported as light. OBJECTIVE: Vital signs reviewed GENERAL: NAD CHEST: RRR, non labored respirations, lungs CTAB, no crackles ABD: soft, appropriately TTP, fundus firm INCISION: steri strips in place, incision dry and intact without evidence of infection. She does have bruising throughout the mons which is also tender. EXT: no lower extremity edema; No evidence of DVT LAB & IMAGING STUDIES: See below PLAN: Plan for discharge home with follow up as scheduled with me in clinic on Friday. Reviewed home care instructions and medications. Reviewed preeclampsia precautions and home BP monitoring. Patient counseled regarding signs and symptoms of infection, excessive bleeding, vaginal rest and activity restrictions. Contraceptive plans to be formalized at visit, partner currently considering vasectomy. Discussed that additional support is available in our clinic if needed. ALLERGIES Allergies Allergy/AdvReac Type Severity Reaction Status Date / Time Bleach (Sodium Hypochlorite) Allergy Severe Rash Verified 12/17/24 13:53 meperidine (From Demerol) Allergy Severe Rash Verified 12/17/24 13:53 adhesive tape Allergy Intermediate Rash Verified 12/17/24 13:53 blueberry Allergy Hives Verified 12/23/24 13:21 MEDICATIONS Ambulatory Orders Medication Instructions Recorded Confirmed vit no.95-ferrous 1 tab PO DAILY 10/17/24 fumarate 28 mg-folic acid 800 mcg tablet ( Multivitamins) hydroxyzine HCl 10 mg tablet 10 mg PO TID PRN anxiety #20 tabs 10/21/24 12/24/24 acetaminophen 500 mg tablet 1,000 mg (2 x 500 mg) PO Q 8H PRN 12/26/24 (Tylenol Extra Strength) pain #30 tabs ferrous sulfate 325 mg (65 mg 325 mg PO Q OTHER DAY #3 0 tabs 12/26/24 iron) tablet,delayed release ibuprofen 800 mg tablet 800 mg PO Q8H PRN pain #30 t abs 12/26/24 nifedipine 30 mg tablet,extended 30 mg PO BID #30 tabs 12/26/24 release 24 hr oxycodone 5 mg tablet 5 mg PO Q6H PRN pain #20 tab s 12/26/24 sennosides 8.6 mg capsule (senna) 8.6 mg PO DAILY PRN constipation 12/26/24 #30 caps PHYSICAL EXAM AT DISCHARGE Vital Signs: Vital Signs x48h Temp Pulse Resp BP Pulse Ox 12/26/24 08:14 98.8 F 82 19 111/71 95 12/26/24 04:00 98.8 F 88 17 121/74 LABS 12/25/24 07:55 12/25/24 07:55 Discharge Plan Discharge Patient Disposition: Home, Self Care Prescriptions: New acetaminophen [Tylenol Extra Strength] 500 mg Tablet 1,000 mg PO Q8H PRN (Reason: pain) Qty: 30 0RF ibuprofen 800 mg tablet 800 mg PO Q8H PRN (Reason: pain) Qty: 30 0RF nifedipine 30 mg Tablet Extended Release 24hr 30 mg PO BID Qty: 30 0RF oxycodone 5 mg Tablet 5 mg PO Q6H PRN (Reason: pain) Qty: 20 0RF ferrous sulfate 325 mg (65 mg iron) tablet,delayed release (DR/EC) 325 mg PO Q OTHER DAY Qty: 30 0RF senna 8.6 mg capsule 8.6 mg PO DAILY PRN (Reason: constipation) Qty: 30 0RF Continued hydroxyzine HCl 10 mg tablet 10 mg PO TID PRN (Reason: anxiety) Qty: 20 0RF PNV no.95-ferrous fumarate-FA [ Multivitamins] 28 mg iron- 800 mcg tablet 1 tab PO DAILY Discontinued aspirin [Adult Low Dose Aspirin] 81 mg tablet,delayed release (DR/EC) 81 mg PO DAILY sertraline 50 mg tablet 50 mg PO DAILY Activity Restrictions/Additional Instructions: - Take your blood pressure at home twice daily - If your blood pressure is greater than 160 systolic or 110 diastolic (160/110), then you should present to the emergency department. - If you are taking blood pressure medication, and your blood pressure is less than 110 systolic or 50 diastolic (110/50), hold your dose of blood pressure medication and notify your provider. - If you have symptoms of severe preeclampsia, such as severe headache, vision changes, or pain in your upper right or mid abdomen, then you should present to the emergency department. Print Language: Indonesian Patient Instructions: Breast Care After , After a , Parent Expectations Follow-up Care: Tan Dennison MD [Provider Admit Priv/Credential, Obstetrics/Gynecology]
[2024-12-26 15:01] VITALS: BP 131/84; O2SAT 94
--- NOTE | 2024-12-26 16:38 | Labor Flowsheet ---
Labor Flowsheet Datetime Report Generated by CPN: 12/26/2024 16:37 Datetime: 12/23/2024 15:57 UTERINE ACTIVITY Monitor Mode: External Frequency (min): 2x in 30 minutes Quality: Mild Duration (sec): 40 Pattern: Normal: <= 5 Contractions in 10 Minutes Resting Tone (Palpate): Relaxed ASSESSMENT A Monitor Mode: Telemetry FHR Baseline Rate : 140 Variability: Moderate 6-25 bpm Accelerations: 15X15 Datetime: 12/23/2024 15:50 VITAL SIGNS NBP Sys/Claudia/Mean (mmHg): 139 : 117 : 123 Datetime: 12/23/2024 15:40 Pulse: 80 Datetime: 12/23/2024 15:39 SpO2 (%): 98 Datetime: 12/23/2024 15:12 Comments: ECV unsuccessful- plan to proceed to Datetime: 12/23/2024 15:02 Decelerations: None PATIENT CARE Oxygen Method: Room Air Datetime: 12/23/2024 14:55 COMMUNICATION Communication: RN at Bedside; Provider at Bedside Communication Comments: and Diony CNM at bedside for Inversion Datetime: 12/23/2024 14:48 Epidural Procedure: Test Dose Datetime: 12/23/2024 14:46 ANESTHESIA Anesthesia Plans: Spinal Anesthesia Comments: spinal dose Datetime: 12/23/2024 14:40 PROCEDURE TIME OUT Procedure Verify: Correct Patient Identity; Correct Side and Site are Marked; Accurate Procedure Consent Form; Agreement on Procedure to be Done; Correct Patient Position Datetime: 12/23/2024 14:30 Monitor Interventions for UA: Lott Adjusted I/O Interventions: Up to BR Datetime: 12/23/2024 14:00 MATERNAL ASSESSMENT Level of Consciousness: Alert DTR's/Clonus: DTRs 1+; No Clonus Headache: Denies Breath Sounds, Left: Clear and Equal Breath Sounds, Right: Clear and Equal Nausea/Vomiting: Denies RUQ Epigastric Pain: Denies Datetime: 12/23/2024 13:58 MEDICATIONS Magnesium/Antihypertensives: Magnesium Sulfate IV (Gm/hr) @ Datetime: 12/23/2024 12:30 Contraction Comments: irritability
== END 2024-12-26 15:00 | disposition home or self-care (01) | DRG 788 ==
LOC: WFO 11:46 → FBP 11:52
PROVIDERS: ADMIT Obstetrics & Gynecology; ATTEND Obstetrics & Gynecology
DX: O99.344 Other mental disorders complicating childbirth; Z56.0 Unemployment, unspecified; O74.6 Other complications of spinal and epidural anesthesia during labor and delivery; O69.81X0 Labor and delivery complicated by cord around neck, without compression, not applicable or unspecified; Z79.899 Other long term (current) drug therapy; O90.81 Anemia of the puerperium; F41.9 Anxiety disorder, unspecified; O14.14 Severe pre-eclampsia complicating childbirth; R03.1 Nonspecific low blood-pressure reading; Z3A.37 37 weeks gestation of pregnancy; Z37.0 Single live birth; O75.89 Other specified complications of labor and delivery; O32.1XX0 Maternal care for breech presentation, not applicable or unspecified; D50.0 Iron deficiency anemia secondary to blood loss (chronic)